=== PATIENT | male | born 1985 | race American Indian/Alaskan Native ===

== ENCOUNTER 2020-01-17 00:05 | Emergency (ER) | payer MEDICAID ==
[2020-01-17 01:34] LABS: Basophils % (Auto) 0.4 % (0.0-1.8); Eosinophils % (Auto) 0.1 % (0.0-4.3); Hematocrit 40.8 % (35.5-45.6); Hemoglobin 13.3 gm/dl (11.8-15.2); Lymphocytes # (Auto) 2.1 K/mm3 (1.2-5.4); Lymphocytes % (Auto) 18.8 % (13.4-35.0); Mean Corpuscular HGB Conc 33 % (32-34); Mean Corpuscular Volume 81 fl (84-94); Monocytes # (Auto) 0.8 K/mm3 (0.0-0.8); Platelet Count 375 K/mm3 (140-440); Red Blood Count 5.06 M/mm3 (3.65-5.03); Red Cell Distribution Width 14.9 % (13.2-15.2)
[2020-01-17 01:43] LABS: BUN/Creatinine Ratio 14; Blood Urea Nitrogen 11 mg/dL (9-20); Calcium 9.3 mg/dL (8.4-10.2); Hemolysis Index 15
[2020-01-17 02:01] LABS: Amphetamine Screen,Urine PRESUMPTIVE NEGATIVE; Benzodiazepines Screen,Urine PRESUMPTIVE NEGATIVE; Cannabinoid Screen,Urine PRESUMPTIVE NEGATIVE; Cocaine Screen,Urine PRESUMPTIVE NEGATIVE; Methadone Screen,Urine PRESUMPTIVE NEGATIVE; Opiate Screen,Urine PRESUMPTIVE NEGATIVE
[2020-01-17 02:07] LABS: Bilirubin,Urine NEG (Negative); Blood,Urine NEG (Negative); Color,Urine Yellow (Yellow); Hyaline Casts,Urine 4 /LPF; Mucus,Urine 3+ /HPF; Urobilinogen,Urine < 2.0 mg/dL (<2.0)
--- NOTE | 2020-01-17 08:18 | Emergency Department Report ---
ED Psych HPI - General Chief Complaint: Psych Stated Complaint: VOICES Time Seen by Provider: 01/17/20 08:07 Source: patient, EMS Mode of arrival: Ambulatory - History of Present Illness Initial Comments: 34-year-old male presents to the ED. Patient is not answering any of my qu estions regarding the reason for his ED visit. Triage note states patient is having auditory hallucinations telling him to kill himself. -: unknown Associated Psychiatric Symptoms: auditory hallucinations - Related Data Home Medications Medication Instructions Recorded Confirmed Last Taken ARIPiprazole [Aripiprazole] 20 mg PO DAILY 01/17/20 01/17/20 Unknown Folic Acid [Folvite] 1 mg PO QDAY 01/17/20 01/17/20 Unknown LORazepam [Lorazepam] 1 mg PO TID PRN 01/17/20 01/17/20 Unknown Sertraline [Zoloft] 150 mg PO QDAY 01/17/20 01/17/20 Unknown Simvastatin 10 mg PO DAILY 01/17/20 01/17/20 Unknown Allergies Allergy/AdvReac Type Severity Reaction Status Date / Time No Known Allergies Allergy Unverified 01/17/20 00:41 ED Review of Systems ROS: Stated complaint: VOICES Other details as noted in HPI Comment: Unobtainable due to pts medical conditions (Patient not cooperative with exam) Psychiatric: auditory hallucinations ED Past Medical Hx - Past Medical History Previous Medical History?: Yes - Surgical History Past Surgical History?: No - Social History Smoking Status: Never Smoker Substance Use Type: None - Medications Home Medications: Home Medications Medication Instructions Recorded Confirmed Last Taken Type ARIPiprazole [Aripiprazole] 20 mg PO DAILY 01/17/20 01/17/20 Unknown History Folic Acid [Folvite] 1 mg PO QDAY 01/17/20 01/17/20 Unknown History LORazepam [Lorazepam] 1 mg PO TID PRN 01/17/20 01/17/20 Unknown History Sertraline [Zoloft] 150 mg PO QDAY 01/17/20 01/17/20 Unknown History Simvastatin 10 mg PO DAILY 01/17/20 01/17/20 Unknown History ED Physical Exam - General Limitations: Other General appearance: alert, in no apparent distress - Head Head exam: Present: atraumatic, normocephalic - Eye Eye exam: Present: normal appearance, EOMI - ENT ENT exam: Present: mucous membranes moist - Neck Neck exam: Present: normal inspection - Respiratory Respiratory exam: Present: normal lung sounds bilaterally. Absent: respiratory distress - Cardiovascular Cardiovascular Exam: Present: regular rate, normal rhythm - GI/Abdominal GI/Abdominal exam: Absent: distended - Extremities Exam Extremities exam: Present: normal inspection - Neurological Exam Neurological exam: Present: alert. Absent: motor sensory deficit - Psychiatric Psychiatric exam: Present: flat affect - Skin Skin exam: Present: warm, dry, intact, normal color ED Course Vital Signs 01/17/20 01/17/20 01/17/20 00:29 07:55 08:08 Temperature 98.0 F 98.8 F Pulse Rate 99 H 84 Respiratory 17 18 18 Rate Blood Pressure 126/68 Blood Pressure [Left] O2 Sat by Pulse 95 96 96 Oximetry 01/17/20 01/17/20 08:10 17:18 Temperature 98.3 F Pulse Rate 89 Respiratory 20 Rate Blood Pressure Blood Pressure 110/66 135/71 [Left] O2 Sat by Pulse 98 Oximetry ED Medical Decision Making - Lab Data Result diagrams: 01/17/20 Unknown 01/17/20 00:41 - Medical Decision Making 34-year-old male appears to be catatonic. Per triage report, patient reported auditory hallucinations telling him to kill himself. Patient does not speak to me at all. Patient will be placed on 1013. Potassium was slightly low, p.o. potassium has been given. Patient is medically clear for mental health evaluation. Critical care attestation.: If time is entered above; I have spent that time in minutes in the direct care of this critically ill patient, excluding procedure time. ED Disposition Clinical Impression: Acute psychosis Disposition: DC/TX-65 PSY HOSP/PSY UNIT Is pt being admited?: No Condition: Stable Referrals: PRIMARY CARE, [Primary Care Provider] - 3-5 Days
[2020-01-17] MEDS ORDERED: ZIPRASIDONE MESYLATE 20 MG VIAL IM ONE ×2 (10:33→10:43)
[2020-01-17] MEDS ORDERED: WATER FOR INJ Sterile (PF) 10 ML ONE (10:33)
[2020-01-17] MEDS ORDERED: POTASSIUM CHLORIDE ER 20 MEQ TAB PO ONE (15:25)
[2020-01-17 17:19] VITALS: BP 135/71
== END 2020-01-17 19:06 ==
LOC: ED 00:05
DX: F23 Brief psychotic disorder (principal)
CPT/HCPCS: 36415; 80048; 80307; 81001; 85025; 96372; 99285; J3486; 80320; G0480

== ENCOUNTER 2021-07-21 21:29 | Emergency (ER) | payer MEDICAID ==
--- NOTE | 2021-07-21 22:55 | Emergency Department Report ---
<PEPE FAN - Last Filed: 07/22/21 06:51> ED Medical Clearance HPI - General Stated complaint: MENTAL HEALTH CONCERNS Source: patient, RN notes reviewed Mode of arrival: Ambulatory Limitations: No Limitations - History of Present Illness Initial comments: Patient is a 36-year-old -Gabonese male with a history of paranoid schizophrenia, bipolar disorder and anxiety depression who presents to the ED with persistent hallucinations, stating that "I am seeing people" for the last 2 days. Patient states that he has not been taking his medications. Patient denies chest pain, shortness of breath, suicidal or hyper homicidal ideations, nausea and vomiting, fever, chills, cough, headache, abdominal pain, dysuria, urinary frequency and urgency. MD Complaint: medical clearance request, other (Hearing voices) -: Sudden, days(s) (2) Reason for Medical Clearance: psychiatric condition Place: home Alledged Intoxication: No Compliant with Home Medications: No Traumatic Symptoms: denies traumatic injury Associated Symptoms: denies: chest pain, shortness of breath, palpitations, diaphoresis, denies other symptoms, confusion, cough, headaches, anorexia, malaise, nausea/vomiting, rash, syncope, weakness Treatments Prior to Arrival: none Home medications: Home Medications Medication Instructions Recorded Confirmed Last Taken ARIPiprazole [Aripiprazole] 20 mg PO DAILY 01/17/20 01/17/20 Unknown Folic Acid [Folvite] 1 mg PO QDAY 01/17/20 01/17/20 Unknown LORazepam [Lorazepam] 1 mg PO TID PRN 01/17/20 01/17/20 Unknown Sertraline [Zoloft] 150 mg PO QDAY 01/17/20 01/17/20 Unknown Simvastatin 10 mg PO DAILY 01/17/20 01/17/20 Unknown Previous Rx's Medication Instructions Recorded Last Taken Type ARIPiprazole [Abilify] 20 mg PO DAILY 30 Days #30 07/22/21 Unknown Rx Allergies/Adverse reactions: Allergies Allergy/AdvReac Type Severity Reaction Status Date / Time No Known Allergies Allergy Unverified 01/17/20 00:41 ED Review of Systems Constitutional: denies: chills, fever Eyes: denies: eye pain, eye discharge, vision change ENT: denies: ear pain, throat pain Respiratory: denies: cough, shortness of breath, wheezing Cardiovascular: denies: chest pain, palpitations Endocrine: no symptoms reported Gastrointestinal: denies: abdominal pain, nausea, vomiting, diarrhea Genitourinary: denies: urgency, dysuria Musculoskeletal: denies: back pain, joint swelling, arthralgia Skin: denies: rash, lesions Neurological: denies: headache, weakness, paresthesias Psychiatric: anxiety, depression, visual hallucinations. denies: auditory hallucinations, homicidal thoughts, suicidal thoughts Hematological/Lymphatic: denies: easy bleeding, easy bruising ED Past Medical Hx - Past Medical History Hx Psychiatric Treatment: Yes (Chronic schizophrenia; bipolar disorder; anxiety and depression) - Social History Smoking Status: Never Smoker Substance Use Type: None - Medications Home Medications: Home Medications Medication Instructions Recorded Confirmed Last Taken Type ARIPiprazole [Aripiprazole] 20 mg PO DAILY 01/17/20 01/17/20 Unknown History Folic Acid [Folvite] 1 mg PO QDAY 01/17/20 01/17/20 Unknown History LORazepam [Lorazepam] 1 mg PO TID PRN 01/17/20 01/17/20 Unknown History Sertraline [Zoloft] 150 mg PO QDAY 01/17/20 01/17/20 Unknown History Simvastatin 10 mg PO DAILY 01/17/20 01/17/20 Unknown History ARIPiprazole [Abilify] 20 mg PO DAILY 30 Days #30 07/22/21 Unknown Rx ED Physical Exam - General General appearance: alert, in no apparent distress - Head Head exam: Present: atraumatic, normocephalic, normal inspection - Eye Eye exam: Present: normal appearance, PERRL, EOMI Pupils: Present: normal accommodation - ENT ENT exam: Present: normal exam, normal orophraynx, mucous membranes moist, TM's normal bilaterally, normal external ear exam - Neck Neck exam: Present: normal inspection, full ROM. Absent: tenderness - Respiratory Respiratory exam: Present: normal lung sounds bilaterally. Absent: respiratory distress, wheezes, rales, stridor, chest wall tenderness, accessory muscle use, decreased breath sounds, prolonged expiratory - Cardiovascular Cardiovascular Exam: Present: regular rate, normal rhythm, normal heart sounds. Absent: systolic murmur, diastolic murmur, rubs, gallop - GI/Abdominal GI/Abdominal exam: Present: soft, normal bowel sounds. Absent: tenderness, guarding, rebound, hyperactive bowel sounds, hypoactive bowel sounds - Extremities Exam Extremities exam: Present: normal inspection, full ROM, normal capillary refill. Absent: tenderness, pedal edema, joint swelling - Back Exam Back exam: Present: normal inspection, full ROM. Absent: tenderness, CVA tenderness (R), CVA tenderness (L), muscle spasm, paraspinal tenderness, vertebral tenderness - Neurological Exam Neurological exam: Present: alert, oriented X3, CN II-XII intact, normal gait, reflexes normal - Psychiatric Psychiatric exam: Present: normal mood, depressed, anxious, flat affect. Absent: homicidal ideation, suicidal ideation - Skin Skin exam: Present: warm, dry, intact, normal color. Absent: rash ED Medical Decision Making - Lab Data Result diagrams: 07/21/21 22:57 07/21/21 22:57 - Medical Decision Making This is a 36-year-old -Gabonese male with a history of paranoid schizophrenia, bipolar disorder and anxiety depression who presents to the ED with persistent hallucinations, stating that "I am seeing people" for the last 2 days. Patient states that he has not been taking his medications. Patient is still waiting to be evaluated in the ED by mental health specialist. The chart was therefore signed awaiting evaluation by ED medical provider after shift change. - Differential Diagnosis Chronic schizophrenia; chronic hallucination; noncompliance ED Disposition Clinical Impression: Chronic paranoid schizophrenia Disposition: 01 HOME / SELF CARE / HOMELESS Is pt being admited?: No Does the pt Need Aspirin: No Condition: Stable Instructions: Schizophrenia Additional Instructions: Professional and Agency Contacts To help [facility](11/10) [place] Crisis Line: Suicide Prevention Line: Crisis Text Line: Text START to [phone] Emergency: 911 Outpatient COMMUNITY Behavioral Health Resources: [place]: [facility] [address] [place], [place] [address] [place]: [address] [address] [place]: [facility] - [address] [place] [address] Tuesday thru Tuesday - 8am - 5pm [place]: [facility] Service Address: [address], [place] [address] [place]: [facility] Address: [address] [place] [address] Tuesday thru Tuesday- 7am-2pm [facility] Address: [address] [place] [address] Tuesday thru Tuesday: 8:30AM-5PM Prescriptions: ARIPiprazole [Abilify] 20 mg PO DAILY 30 Days #30 Referrals: JANETT COLORADO MD [Primary Care Provider] - 3-5 Days Time of Disposition: 06:53 Print Language: EAST TIMORESE <ALLYSON ARIAS - Last Filed: 07/22/21 14:59> ED Review of Systems ROS: Stated complaint: MENTAL HEALTH CONCERNS Other details as noted in HPI ED Course Vital Signs 07/21/21 22:40 Temperature 98.7 F Pulse Rate 75 Respiratory 18 Rate Blood Pressure 113/60 O2 Sat by Pulse 95 Oximetry ED Medical Decision Making - Lab Data Result diagrams: 07/21/21 22:57 07/21/21 22:57 - Medical Decision Making Patient has been evaluated by our psychiatric team and advised patient to discharge home and follow-up as an outpatient. Patient currently denying any suicidal or homicidal ideation. No visual or auditory hallucination. Patient is medically and psychiatrically stable for discharge.
[2021-07-21 23:47] LABS: Basophils % (Auto) 0.5 % (0.0-1.8); Eosinophils # (Auto) 0.2 K/mm3 (0.0-0.4); Eosinophils % (Auto) 2.1 % (0.0-4.3); Hematocrit 41.2 % (35.5-45.6); Hemoglobin 13.2 gm/dl (11.8-15.2); Lymphocytes # (Auto) 2.2 K/mm3 (1.2-5.4); Lymphocytes % (Auto) 24.9 % (13.4-35.0); Mean Corpuscular HGB Conc 32 % (32-34); Mean Corpuscular Volume 80 fl (84-94); Monocytes # (Auto) 0.6 K/mm3 (0.0-0.8); Monocytes % (Auto) 6.8 % (0.0-7.3); Platelet Count 383 K/mm3 (140-440); Red Blood Count 5.13 M/mm3 (3.65-5.03); Red Cell Distribution Width 14.8 % (13.2-15.2)
[2021-07-21 23:51] LABS: Alanine Aminotransferase 31 units/L (7-56); Albumin 4.6 g/dL (3.9-5); Blood Urea Nitrogen 9 mg/dL (9-20); Hemolysis Index 3
[2021-07-22 00:03] LABS: BUN/Creatinine Ratio 13
[2021-07-22 00:32] LABS: Bilirubin,Urine NEG (Negative); Blood,Urine NEG (Negative); Color,Urine Yellow (Yellow); Mucus,Urine 3+ /HPF; Protein,Urine <15 mg/dL mg/dL (Negative); Urobilinogen,Urine < 2.0 mg/dL (<2.0)
[2021-07-22 00:34] LABS: Amphetamine Screen,Urine PRESUMPTIVE NEGATIVE; Benzodiazepines Screen,Urine PRESUMPTIVE NEGATIVE; Cannabinoid Screen,Urine PRESUMPTIVE NEGATIVE; Cocaine Screen,Urine PRESUMPTIVE NEGATIVE; Methadone Screen,Urine PRESUMPTIVE NEGATIVE; Opiate Screen,Urine PRESUMPTIVE NEGATIVE
--- NOTE | 2021-07-22 11:17 | Consultation ---
History of Present Illness - Reason for Consult Consult date: 07/22/21 Reason for consult: mental health evaluation - History of Present Psychiatric Illness The patient is a 36 year old with history of schizophrenia, anxiety, insomnia and depression. In my encounter with the patient, he is calm alert and oriented x2. The patient reports having auditory and visual hallucinations that became intense yesterday. he reports compliance with psychotropic medications, current on Abilify maintena monthly IM Injection which he states he received last month from [facility]. The patient states he feels better today; he denies any current suicidal/homicidal ideation but continues to have auditory/visual hallucinations " voices saying take my clothes off but I know better." Attempted to reach [facility] out patient @ [phone] to verify when last Abilify maintena was administered. PAST PSYCHIATRIC HISTORY Diagnoses:schizophrenia, anxiety, insomnia and depression Suicide attempts or Self-harm behavior: Yes Prior psychiatric hospitalizations: Yes Substance Abuse history: Denies Previous psychiatric medications tried: Sertraline, Abilify maintena Outpatient treatment:[facility] PAST MEDICAL HISTORY: none reported Family Psychiatric History: None reported or documented SOCIAL HISTORY Marital Status: Single Living Arrangements: Lives with Aunty Employment Status: Unemployed Access to guns/weapons: Denies Education: 12th grade History of Abuse: none reported Legal History: none reported REVIEW OF SYSTEMS Constitutional: Negative for weight loss ENT: Negative for stridor Respiratory: Negative for cough or hemoptysis All other systems reviewed and are negative MENTAL STATUS EXAMINATION General Appearance and Behavior: Age appropriate, good hygiene, wearing appropriate clothes, poor eye contact, cooperative polite with questioning. Cooperation: Participating/engaged, guarded Psychomotor Behavior: unremarkable and within normal limits Mood: OK Affect and affective range: congruent with mood Thought Process: goal directed Thought Content: reality oriented Speech: Normal volume, Regular rate and rhythm, Intellectual Functioning: Average Suicidal Ideation: Denies Homicidal Ideation: Denies Hallucinations: auditory/visual Delusions: None Impulse Control: Normal Insight and Judgment: Limited insight and judgment, Memory: Normal, Attention: Normal, Orientation: Alert, oriented, Assessment and Plan (1) Schizophrenia Current Visit: Yes Status: Acute Treatment Continue home Meds. Start Abilify 20mg po daily Sitter: Per primary Medical: Per primary Disposition: Do not Recommend acute inpatient psychiatric treatment. Case staffed with Dr. Jimenez Will sign off. Thank you Medications and Allergies Medications and Allergies Allergies Allergy/AdvReac Type Severity Reaction Status Date / Time No Known Allergies Allergy Unverified 01/17/20 00:41 Home Medications Medication Instructions Recorded Confirmed Last Taken Type ARIPiprazole [Aripiprazole] 20 mg PO DAILY 01/17/20 01/17/20 Unknown History Folic Acid [Folvite] 1 mg PO QDAY 01/17/20 01/17/20 Unknown History LORazepam [Lorazepam] 1 mg PO TID PRN 01/17/20 01/17/20 Unknown History Sertraline [Zoloft] 150 mg PO QDAY 01/17/20 01/17/20 Unknown History Simvastatin 10 mg PO DAILY 01/17/20 01/17/20 Unknown History ARIPiprazole [Abilify] 20 mg PO DAILY 30 Days #30 07/22/21 Unknown Rx Mental Status Exam - Vital signs Last Vital Signs Temp 98.7 F 07/21/21 22:40 Pulse 75 07/21/21 22:40 Resp 18 07/21/21 22:40 BP 113/60 07/21/21 22:40 Pulse Ox 95 07/21/21 22:40 Results Result Diagrams: 07/21/21 22:57 07/21/21 22:57 Abnormal lab results 07/21/21 07/21/21 07/21/21 Range/Units 22:57 22:57 22:57 RBC 5.13 H (3.65-5.03) M/mm3 MCV 80 L (84-94) fl MCH 26 L (28-32) pg Creatinine 0.7 L (0.8-1.3) mg/dL Salicylates < 0.3 L (2.8-20.0) mg/dL Acetaminophen (10.0-30.0) ug/mL 07/21/21 Range/Units 22:57 RBC (3.65-5.03) M/mm3 MCV (84-94) fl MCH (28-32) pg Creatinine (0.8-1.3) mg/dL Salicylates (2.8-20.0) mg/dL Acetaminophen 5.0 L (10.0-30.0) ug/mL All other labs normal.
[2021-07-22 16:02] VITALS: BP 130/88
== END 2021-07-22 16:02 | disposition home or self-care (01) ==
LOC: ED 21:29
DX: F20.0 Paranoid schizophrenia (principal)
CPT/HCPCS: 36415; 80053; 80307; 80320; 81001; 85025; 99283; G0480